=== PATIENT | female | born 1935 | race Caucasian/White ===

== ENCOUNTER 2019-02-09 09:45 | Emergency (ER) | payer OTHER ==
[~2019-02-09] VITALS: Ht 149.9 cm; Wt 61.2 kg
== END 2019-02-09 13:22 | disposition home or self-care (01) ==
LOC: ER 09:45
DX: R51 Headache (principal)

== ENCOUNTER 2021-10-27 09:00 | Outpatient (CLI) | payer OTHER | END 2021-10-27 09:30 | disposition home or self-care (01) | LOC: PPH VACUNA 09:00 | PROVIDERS: ATTEND Emergency Medicine Pediatric Emergency Medicine | DX: Z23 Encounter for immunization (principal) ==